=== PATIENT | female | born 1995 | race Caucasian/White ===

== ENCOUNTER 2016-09-27 20:18 | Emergency (ER) | payer BC ==
[2016-09-27 20:27] VITALS: BP 130/87; PULSE 81; RESP 16; TEMP 98.2; O2SAT 97
--- NOTE | 2016-09-27 20:29 | EDPHY ---
H & P Stated Complaint: UTI symptoms, enlarged tonsils not sore Time Seen by Provider: 09/27/16 20:29 - Personal History LMP (Females 10-55): 15-21 Days Ago Current Tetanus/Diphtheria Vaccine: Yes Tetanus Vaccine Date: 2013 - Medical/Surgical History Hx Asthma: No Hx Chronic Respiratory Disease: No Hx Diabetes: No Hx Cardiac Disease: No Hx Renal Disease: No Hx Cirrhosis: No Hx Alcoholism: No Hx HIV/AIDS: No Hx Splenectomy or Spleen Trauma: No Other PMH: UTI - Social History Smoking Status: Never smoked Constitutional: Initial Vital Signs Temperature (C) 36.8 C 09/27/16 20:24 Heart Rate 81 09/27/16 20:24 Respiratory Rate 16 09/27/16 20:24 Blood Pressure 130/87 H 09/27/16 20:24 O2 Sat (%) 97 09/27/16 20:24 O2 Delivery Mode Room Air Allergies/Adverse Reactions: cat dander Allergy (Verified 09/27/16 20:24) Penicillins Allergy (Verified 09/27/16 20:24) Home Medications: Medication Instructions Recorded Cephalexin [Keflex (RX)] 500 mg PO TID #30 cap 09/27/16 Nuvaring Vaginal Ring 09/27/16 Phenazopyridine HCl [Pyridium] 200 mg PO TID #6 tab 09/27/16 Medical Decision Making ED Course/Re-evaluation: CHIEF COMPLAINT: Urinary pain and frequency HISTORY OF PRESENT ILLNESS: The patient is a 21 y/o female who complains of frequency and burning while urinating accompanied with cloudy urine. She was seen at [facility] urgent [facility] for similar symptoms and was diagnosed with a UTI 2-3 weeks ago. She was prescribed with a three-day course of what sounds like Bactrim, but her symptoms did not resolve completely. Denies hematuria, fever, back pain, or abdominal pain. She notes her tonsils have felt swollen, but denies difficulty swallowing or other complaints. She is otherwise healthy. REVIEW OF SYSTEMS: A 10 point review of systems was performed and is negative with the exception of the elements mentioned in the history of present illness. PHYSICAL EXAM: HR, BP, O2 Sat, RR. Temp noted General Appearance: Alert, well hydrated, appropriate, and non-toxic appearing. Head: Atraumatic without scalp tenderness or obvious injury Eyes: Pupils equal, round, reactive to light and accommodation, EOMI, no trauma , no injection. Nose: Atraumatic, no rhinorrhea, clear. Throat: There is no erythema or exudates, no lesions, mildly hypertrophic tonsils, mucus membranes moist. Neck: Supple, nontender, no lymphadenopathy. Respiratory: No retractions, no distress, no wheezes, and no accessory muscle use. Lungs are clear to auscultation bilaterally. Cardiovascular: Regular rate and rhythm, no murmurs, rubs, or gallops. Good capillary refill all extremities. Musculoskeletal: Normal active ROM of all extremities, atraumatic. Neurological: Alert, appropriate, and interactive. Non-focal neuro. Skin: No rashes, good turgor, no nodules on palpation. Past medical history: Urinary tract infection Social history: [employer] student DIFFERENTIAL DIAGNOSIS: The differential diagnosis for the patient's dysuria and polyuria included but was not limited to urinary tract infection, viral syndrome, pharyngitis, meningitis, and sepsis. MEDICAL DECISION MAKING: The patient is a 21 y/o female who presents with polyuria and dysuria for the past several days. She was on antibiotics for a previously diagnosed UTI several weeks ago. Plan on urinalysis, Keflex, and Pyridium. Reassessed patient and return precautions provided; she is comfortable with this plan - Data Points Medications Given: Discontinued Medications Cephalexin HCl (Keflex) 500 mg PO EDNOW ONE PRN Reason: Protocol Stop: 09/27/16 20:38 Last Admin: 09/27/16 20:46 Dose: 500 mg Phenazopyridine HCl (Pyridium) 200 mg PO EDNOW ONE Stop: 09/27/16 20:39 Last Admin: 09/27/16 20:47 Dose: 200 mg Departure - Departure Disposition: Home, Routine, Self-Care Clinical Impression: Urinary tract infection Qualifiers: Urinary tract infection type: site unspecified Hematuria presence: without hematuria Qualified Code(s): N39.0 - Urinary tract infection, site not specified Condition: Good Instructions: Cephalexin (By mouth), Phenazopyridine (By mouth), Urinary Tract Infection in Women (ED) Additional Instructions: 1. Take Keflex and Pyridium as prescribed for the next 7 days. 2. Follow up with your primary care provider for unimproved symptoms. 3. Return to the ED for worsening of symptoms. Referrals: SUE ROBERT [Other] - As per Instructions Prescriptions: Cephalexin [Keflex (RX)] 500 mg PO TID #30 cap Phenazopyridine HCl [Pyridium] 200 mg PO TID #6 tab Report Scribed for: Keon Schwartz Report Scribed by: Toyin Butler Date of Report: 09/27/16 Time of Report: 20:31
[2016-09-27] MEDS ORDERED: CEPHALEXIN 500 MG CAP PO ONE (20:37)
[2016-09-27] MEDS ORDERED: PHENAZOPYRIDINE HCL 200 MG TAB PO ONE (20:38)
== END 2016-09-27 20:52 | disposition home or self-care (01) ==
DX: N39.0 Urinary tract infection, site not specified (principal)